=== PATIENT | female | born 1980 | race Caucasian/White ===

== ENCOUNTER 2019-05-14 09:54 | Outpatient (CLI) | payer OTHER ==
--- NOTE | 2019-05-14 15:14 | PET ---
PET SCAN WITH CT ATTENUATION CORRECTION: HISTORY: Right breast cancer. Compression fracture of the thoracic spine. Lumbar spine lesion noted on recen t MRI. COMPARISON: None. TECHNIQUE: PET scan with CT attenuation correction was performed from the base of the brain through the proximal thighs following the intravenous administration of 12.8 mCi of [id number]. CORRELATION: Correlation is made with an MRI report 04/29/2019. FINDINGS: HEAD AND NECK: No abnormal FDG localization. CHEST: No mediastinal, hilar, or hypermetabolic lymphadenopathy. CT used for attenuation correction does no t demonstrate significant masses or consolidation of the lung parenchyma. No FDG avidity. ABDOMEN AND PELVIS: There is physiologic distribution of the radiotracer. No abnormal FDG localization in the abdomen. In the left hemipelvis, at the level of the ovaries/adnexa, there is a solitary hypermetabolic focus with a maximum SUV of 6.9. This focus may be associated with the left ovary. OSSEOUS STRUCTURES: There is diffuse, multifocal osseous hypermetabolic activity involving multiple ribs, the sternum, al l of the thoracic and lumbar vertebrae, as well as the sacrum and multiple cervical vertebrae as well as the sacrum and multiple cervical vertebrae. There is evidence for multifocal osseous metastases. Advertising Representative hypermetabolic focus at T12 has a maximum SUV of 12.3. Additional hypermetabolic ac tivity at T9 has a maximum SUV of 12.3. CT used for attenuation correction demonstrates a compressio n fracture at T11 with mild loss of vertebral body height. Given that there is associated FDG avidit y, pathologic fracture is favored. IMPRESSION: 1. Multifocal osseous metastases with a pathologic fracture at T11. 2. Fluorodeoxyglucose avidity in the left aspect of the pelvis, associated with the adnexa/ovary. N eoplastic process cannot be excluded. Further evaluation with pelvic MRI is recommended. POS: HERMILA
== END 2019-05-14 09:55 | disposition home or self-care (01) ==
LOC: PET 09:54
PROVIDERS: ATTEND Family Medicine
DX: C50.911 Malignant neoplasm of unspecified site of right female breast (principal); M89.9 Disorder of bone, unspecified; C79.51 Secondary malignant neoplasm of bone; M84.58XA Pathological fracture in neoplastic disease, other specified site, initial encounter for fracture
CPT/HCPCS: 78815; A9552

== ENCOUNTER 2019-06-05 08:30 | Outpatient (CLI) | payer OTHER, SELFPAY ==
--- NOTE | 2019-06-05 09:38 | CT ---
HEAD CT WITH AND WITHOUT CONTRAST: HISTORY: Breast cancer. Bone metastases. FINDINGS: NONCONTRAST HEAD CT: No parenchymal hemorrhage. No extra-axial hematoma. No midline shift. Basilar cisterns are patent. Brain volume is age-appropriate. Cortical small-white matter differentiation is preserved No hydrocephalus. There is paranasal sinus mucosal thickening. Adequate aeration and of the mastoid air cells. Calvarium is intact. There is no CT evidence of osseous metastases with regards to the calvarium. POSTCONTRAST HEAD CT: No pathologic enhancement of the brain parenchyma. IMPRESSION: 1. No CT evidence of osseous metastases. 2. No pathologic enhancement of the brain parenchyma. Transcribed Date/Time: 06/05/2019 9:57 AM
[2019-06-05] MEDS ORDERED: ISOVUE-370 76%-LOCM 1 ML ONE (12:00)
== END 2019-06-05 08:31 | disposition home or self-care (01) ==
LOC: BICCT 08:30
PROVIDERS: ATTEND Internal Medicine Hematology & Oncology
DX: C50.211 Malignant neoplasm of upper-inner quadrant of right female breast (principal); C79.51 Secondary malignant neoplasm of bone
CPT/HCPCS: 70470; Q9966

== ENCOUNTER 2019-12-10 11:15 | Outpatient (CLI) | payer OTHER ==
--- NOTE | 2019-12-10 15:42 | PET ---
Radionucleotide PET scan with CT attenuation correction and SPECT imaging HISTORY: Malignant neoplasm of upper inner quadrant right breast. Osseous metastases. Restaging. COMPARISON: 05/14/2019. FINDINGS: Physiologic uptake of radiotracer throughout the enteric system and along each urinary trac t. Overall, there has been extreme decrease in hypermetabolic activity associated with widespread mixed osseous metastatic lesions. The areas of greatest residual hypermetabolic activity are at the T3 vertebral body max SUV 5.8 (previously 13.6), the left iliac bone max SUV 6.6 (16.4), and the proxima l left femur 7.4 (9.9). A focus of increased uptake involving the central portion of the left humerus shows max SUV 6.2 where no abnormal uptake was present on the previous scan. Max SUV associated with the T12 lesion is now 6.8 (previously 14.8). Sagittal CT images, however, alfredo w compression of the anterior aspect of the T12 vertebral body involving primarily the superior endplate, with loss of height by approximately 60% anteriorly. There is retropulsion of the superior endplate, narrowing the AP diameter of the central canal to 0.9 cm. Mild reactive uptake around the left breast implant. Right breast implant also in place. There is com plete mucosal opacification of the left maxillary sinus. IMPRESSION : Remarkable response to therapy, with markedly decreased hypermetabolic activity associated with wides pread osseous metastases. Interval vertebral compression of the T12 superior endplate, with retropulsion and compromise of the central spinal canal. Please consider neurosurgical evaluation. Left maxillary sinusitis.
== END 2019-12-10 11:16 | disposition home or self-care (01) ==
LOC: PET 11:15
PROVIDERS: ATTEND Internal Medicine Hematology & Oncology
DX: C50.211 Malignant neoplasm of upper-inner quadrant of right female breast (principal); C79.51 Secondary malignant neoplasm of bone; R94.8 Abnormal results of function studies of other organs and systems; J32.0 Chronic maxillary sinusitis; G95.29 Other cord compression
CPT/HCPCS: 78815; A9552

== ENCOUNTER 2019-12-14 07:40 | Outpatient (CLI) | payer OTHER ==
[2019-12-14] MEDS ORDERED: Magnevist 469MG/ML 20 ML VIAL ONE (09:28)
--- NOTE | 2019-12-14 09:53 | MRI ---
M RI THORACIC SPINE WITH AND WITHOUT CONTRAST HISTORY: Metastatic breast cancer. Interval compression fracture at T12 superior endplate on PET imaging. Kacy re back pain, mostly right-sided. COMPARISON: None. CORRELATION: PET imaging 12/10/2019. FINDINGS: Visualized mediastinum, lung parenchyma and solid organs have appropriate signal intensity. There is diffuse T1 marrow signal hypointensity involving multiple thoracic and lumbar vertebrae. STI R images demonstrate no significant hyperintensity throughout the thoracic and upper lumbar vertebrae. There is moderate loss of vertebral body height at T9, T11 and T12. There is marked kyphos is secondary to moderate compression fractures at T11 and T12. Postcontrast images demonstrate heterogeneous enhancement. The thoracic cord has a normal size and signal intensity. No intramedullary mass. Conus medullaris te rminates beyond the T12 vertebral body level. There is moderate central canal stenosis at T12, due to retropulsion. The remaining thoracic central spinal canal is patent. Thoracic neural foramina are patent. IMPRESSION: 1. Multifocal osseous metastases. There is heterogeneous signal intensity throughout the thoracic nitza tebrae on the postcontrast images. Findings may represent posttreatment change. Residual metastases cannot be excluded. Moderate compression fracture at T11 and T12 with associated retropulsion and kyp hosis. Absence of STIR hyperintensity to suggest remote compression fracture. 2. Moderate central canal stenosis at T12 secondary to retropulsion. Transcribed Date/Time: 12/14/2019 10:31 AM
--- NOTE | 2019-12-14 10:12 | MRI ---
MRI LUMBAR SPINE WITH AND WITHOUT CONTRAST: HISTORY: Metastatic breast cancer. T12 compression fracture. COMPARISON: None. CORRELATION: Pet imaging 12/10/2019. FINDINGS: Diffuse T1 marrow signal intensity in the visualized distal thoracic spine, lumbar vertebrae and sacr um. Postcontrast images demonstrate heterogeneous enhancement suggesting post treatment change. There is no significant STIR hyperintensity to suggest acute edema or fracture. Lumbar spine vertebra l body heights are maintained. Appropriate signal intensity visualized of the paraspinal muscles and solid organs. Conus medullaris terminates at the mid to lower aspect of L1. T12 vertebral body: Moderate canal stenosis secondary to retropulsion. T12-L1 mild loss of disc space height. No significant central canal stenosis. Mild bilateral neural f oraminal narrowing. L1-L2: Adequate disc hydration. No significant central canal stenosis or significant neural foraminal narrowing. L2-L3: Adequate disc hydration. No significant central canal stenosis or significant neural foraminal narrowing. L3-L4: Adequate disc hydration. No significant central canal stenosis or significant neural foraminal narrowing. L4-L5: Adequate disc hydration. Minimal right subareolar disc herniation. Minimal ligamentum flavum t hickening and facet hypertrophy. No significant central canal stenosis. Mild bilateral neural foraminal narrowing. L5-S1: Adequate disc hydration. No significant central canal stenosis. Mild bilateral neural foramina l narrowing. IMPRESSION: 1. Heterogeneous marrow signal intensity without significant STIR hyperintensity. No evidence of an a cute fracture. Heterogeneous postcontrast enhancement suggest components of treated osseous metastases. Residual metastases cannot be excluded. 2. No acute pathologic fracture. T11 and T12 compression fractures are presumed be remote. 3. Moderate central canal stenosis at T12 secondary to retropulsion. Transcribed Date/Time: 12/14/2019 10:36 AM
== END 2019-12-14 07:41 | disposition home or self-care (01) ==
LOC: MRI 07:40
PROVIDERS: ATTEND Internal Medicine Hematology & Oncology
DX: C50.211 Malignant neoplasm of upper-inner quadrant of right female breast (principal); C79.51 Secondary malignant neoplasm of bone; R93.7 Abnormal findings on diagnostic imaging of other parts of musculoskeletal system; G95.20 Unspecified cord compression; M48.04 Spinal stenosis, thoracic region; M40.204 Unspecified kyphosis, thoracic region; M48.54XA Collapsed vertebra, not elsewhere classified, thoracic region, initial encounter for fracture
CPT/HCPCS: 72157; 72158; A9579

== ENCOUNTER 2021-08-17 09:54 | Outpatient (CLI) | payer SELFPAY | END 2021-08-17 09:55 | disposition home or self-care (01) | LOC: PET 09:54 | PROVIDERS: ATTEND Internal Medicine Hematology & Oncology | DX: C50.211 Malignant neoplasm of upper-inner quadrant of right female breast (principal); C79.51 Secondary malignant neoplasm of bone | CPT/HCPCS: 78815; A9552 ==

== ENCOUNTER 2022-07-17 08:00 | Outpatient (CLI) | payer OTHER, SELFPAY | END 2022-07-17 08:01 | disposition home or self-care (01) | LOC: PET 08:00 | PROVIDERS: ATTEND Internal Medicine Hematology & Oncology | DX: Z12.31 Encounter for screening mammogram for malignant neoplasm of breast (principal); C50.211 Malignant neoplasm of upper-inner quadrant of right female breast; C79.51 Secondary malignant neoplasm of bone; R91.1 Solitary pulmonary nodule | CPT/HCPCS: 78815; A9552 ==

== ENCOUNTER 2023-01-10 13:24 | Inpatient (IN) | payer SELFPAY ==
[2023-01-10 14:13] LABS: Hemoglobin 8.5 g/dL (12.0-16.0); Mean Corpuscular HGB CONC 35.3 g/dL (32.0-36.0); Mean Corpuscular Hemoglobin 29.1 pg (27.0-31.0); Mean Corpuscular Volume 82.5 fl (78.0-98.0); Mean Platelet Volume 9.5 fL (7.4-10.4); Platelet Count 130 10x3/uL (130-400); Red Blood Cell (RBC) Count 2.92 mill/uL (4.20-5.40)
[2023-01-10 14:14] LABS: Delete Auto Diff?? YES; Manual Diff?? YES
[2023-01-10 14:34] LABS: ALT (SGPT) 22 U/L (8-55); AST (SGOT) 42 U/L (5-34); Albumin 3.8 g/dL (3.5-5.0); Alkaline Phosphatase 191 U/L (40-110); Anion Gap 13 mmol/L (10-20); BUN (Urea Nitrogen) 31 mg/dL (7.0-18.7); Bilirubin, Total 0.4 mg/dL (0.2-1.2); Calc. Creatinine Clearance 0 mL/min (70-130); Carbon Dioxide 27 mmol/L (22-29); Chloride 101 mmol/L (98-107); Estimated GFR 25; Glucose 86 mg/dL (70-105); Potassium 4.1 mmol/L (3.5-5.1); Protein, Total 6.8 g/dL (6.0-8.3); Sodium 137 mmol/L (136-145)
[2023-01-10 15:00] LABS: Band 5 % (5-11); CellaVision Operator ID LAB.MJL; Eosinophils 11 % (0-10); Lymphocytes 25 % (21-51); Metamyelocyte 4 % (0-0); Monocytes 14 % (0-10); Neutrophil 41 % (42-75); Ovalocytes SLIGHT = 2-5 cells HPF (0-1); Platelet Adequacy Comment Platelets Normal; Polychromasia SLIGHT = 2-3 cells HPF (0-2); Reactive Lymphocytes 1 % (0-10); Tear Drops SLIGHT = 2-5 cells HPF (0-1); Total Cell Count 101
[2023-01-10 15:04] LABS: Calcium 16.6 mg/dL (7.8-10.44)
[2023-01-10 15:20] LABS: Bacteria/HPF None Seen HPF (None Seen); Bilirubin Negative (Negative); Blood, Urine Negative (Negative); CAUTI Indications for Culture Pelvic or flank pain; Clarity Clear (Clear); Glucose, Urine (Dipstick) Normal (Negative); Ketone, Urine Negative (Negative); Leukocyte Negative Leu/uL (Negative); Nitrite Negative (Negative); Protein, Urine (Dipstick) 10 mg/dL (Neg-Trace); RBC/HPF 0-3 HPF (0-3); Specific Gravity, Urine 1.013 (1.002-1.036); Squamous Epithelial None Seen HPF (0-3); Urobilinogen Normal mg/dL (Less than 2); WBC/HPF 0-3 HPF (0-3); pH, Urine 5.5 (5.0-9.0)
[2023-01-10 15:22] LABS: Urine Culture Reflex No No
[2023-01-10] MEDS ORDERED: Morphine 4 MG/ML VIAL ONE (16:02)
[2023-01-10] MEDS ORDERED: Prochlorperazine Edisylate 10 MG in Sodium Chloride 0.9% 50 ML IVPB SCH (16:15)
[2023-01-10] MEDS ORDERED: Ondansetron PF 4 MG/2 ML Vial IVP PRN (17:39)
[2023-01-10] MEDS ORDERED: Morphine 2 MG/ML VIAL SLOW IVP PRN (17:39)
[2023-01-10] MEDS ORDERED: Sodium Chloride 0.9% 1,000 ML IV SCH (18:00)
[2023-01-10] MEDS: Sodium Chloride 0.9% 1,000 ML IV SCH (18:42)
[2023-01-10 19:01] LABS: Magnesium 1.2 mg/dL (1.6-2.6); Phosphorus 4.2 mg/dL (2.3-4.7)
[2023-01-10 19:18] LABS: Free T4 (Free Thyroxine) 0.96 ng/dL (0.70-1.48); Thyroid Stimulating Hormone 4.3823 uIU/mL (0.35-4.94)
[2023-01-10 19:26] VITALS: BMI 17.2
[2023-01-10] MEDS: Pantoprazole 40 MG VIAL IVP SCH (20:47)
[2023-01-10] MEDS: Cefepime 2 GM in Sodium Chloride 0.9% 100 ML IVPB SCH (20:47)
[2023-01-10] MEDS: Calcitonin,Salmon,Synthetic 400 UNITS/2 ML SC SCH (20:47)
[2023-01-10] MEDS ORDERED: Promethazine HCl 12.5 MG in Sodium Chloride 0.9% 50 ML IVPB PRN (21:47)
[2023-01-10] MEDS ORDERED: Promethazine HCl 12.5 MG in Sodium Chloride 0.9% 50 ML IVPB SCH (22:00)
[2023-01-10 22:32] LABS: #Eosinphils 0.5 thou/uL (0.0-0.7); #Monocytes 0.6 thou/uL (0.11-0.59); #Neutrophils 2.1 thou/uL (1.40-6.50); %Basophils 0.7 % (0.0-1.0); %Eosinophils 10.8 % (0.0-10.0); %Lymphocytes 23.3 % (21.0-51.0); %Monocytes 13.3 % (0.0-10.0); %Neutrophils 46.3 % (42.0-75.0); Hemoglobin 7.8 g/dL (12.0-16.0); Mean Corpuscular HGB CONC 34.7 g/dL (32.0-36.0); Mean Corpuscular Hemoglobin 29.1 pg (27.0-31.0); Mean Platelet Volume 9.2 fL (7.4-10.4); RBC Distribution Width 13.2 % (11.5-14.5); Red Blood Cell (RBC) Count 2.68 mill/uL (4.20-5.40); White Blood Cell (WBC) Count 4.4 10x3/uL (4.8-10.8)
[2023-01-10 22:49] LABS: Platelet Count 106 10x3/uL (130-400)
[2023-01-10 22:50] LABS: Manual Diff?? YES
[2023-01-10 22:51] LABS: Anion Gap 13 mmol/L (10-20); BUN (Urea Nitrogen) 30 mg/dL (7.0-18.7); Calc. Creatinine Clearance 25 mL/min (70-130); Carbon Dioxide 24 mmol/L (22-29); Chloride 107 mmol/L (98-107); Estimated GFR 27; Glucose 92 mg/dL (70-105); Potassium 3.7 mmol/L (3.5-5.1); Sodium 140 mmol/L (136-145)
[2023-01-10 22:57] LABS: Calcium 14.4 mg/dL (7.8-10.44)
[2023-01-10 23:34] LABS: Band 10 % (5-11); Eosinophils 16 % (0-10); Large Platelets 1.9 % (0-5); Lymphocytes 20 % (21-51); Metamyelocyte 1 % (0-0); Monocytes 3 % (0-10); Myelocyte 1 % (0-0); Neutrophil 49 % (42-75); Platelet Adequacy Comment Platelets Decreased; Total Cell Count 103
[2023-01-11] MEDS: Sodium Chloride 0.9% 1,000 ML IV SCH ×4 (01:55→21:20)
[2023-01-11] MEDS: Calcitonin,Salmon,Synthetic 400 UNITS/2 ML SC SCH ×2 (05:45→17:30)
[2023-01-11 06:48] LABS: #Eosinphils 0.5 thou/uL (0.0-0.7); #Monocytes 0.7 thou/uL (0.11-0.59); #Neutrophils 2.1 thou/uL (1.40-6.50); %Basophils 0.8 % (0.0-1.0); %Eosinophils 10.6 % (0.0-10.0); %Lymphocytes 24.5 % (21.0-51.0); %Monocytes 15.1 % (0.0-10.0); %Neutrophils 43.3 % (42.0-75.0); Hemoglobin 7.5 g/dL (12.0-16.0); Mean Corpuscular HGB CONC 35.2 g/dL (32.0-36.0); Mean Corpuscular Hemoglobin 29.8 pg (27.0-31.0); Mean Corpuscular Volume 84.5 fl (78.0-98.0); Mean Platelet Volume 9.4 fL (7.4-10.4); RBC Distribution Width 13.2 % (11.5-14.5); Red Blood Cell (RBC) Count 2.52 mill/uL (4.20-5.40); White Blood Cell (WBC) Count 4.9 10x3/uL (4.8-10.8)
[2023-01-11 06:51] LABS: Platelet Count 104 10x3/uL (130-400)
[2023-01-11 07:28] LABS: ALT (SGPT) 18 U/L (8-55); AST (SGOT) 36 U/L (5-34); Albumin 3.1 g/dL (3.5-5.0); Alkaline Phosphatase 153 U/L (40-110); Anion Gap 12 mmol/L (10-20); BUN (Urea Nitrogen) 27 mg/dL (7.0-18.7); Bilirubin, Total 0.5 mg/dL (0.2-1.2); Calc. Creatinine Clearance 28 mL/min (70-130); Carbon Dioxide 22 mmol/L (22-29); Chloride 107 mmol/L (98-107); Estimated GFR 29; Globulin 2.7 g/dL (2.4-3.5); Glucose 82 mg/dL (70-105); Iron 77 ug/dL (50-170); Potassium 3.3 mmol/L (3.5-5.1); Protein, Total 5.8 g/dL (6.0-8.3); Sodium 138 mmol/L (136-145)
[2023-01-11] MEDS: Pantoprazole 40 MG VIAL IVP SCH ×2 (08:13→21:20)
[2023-01-11] MEDS: Cefepime 2 GM in Sodium Chloride 0.9% 100 ML IVPB SCH (08:14)
[2023-01-11] MEDS ORDERED: Electrolyte Replacement Protocol 1 EACH FS SCH (11:19)
[2023-01-11] MEDS ORDERED: Potassium Chloride 20 MEQ TAB PO SCH (11:30)
[2023-01-11] MEDS: Potassium Chloride 20 MEQ in Premix Bag 1 BAG IVPB SCH ×2 (13:50→17:29)
[2023-01-11] MEDS ORDERED: Magnesium Sulfate In Water 4 GM in Premix Bag 1 BAG IVPB SCH (16:00)
[2023-01-11] MEDS ORDERED: Magnesium Sulfate 4 GM in Sodium Chloride 0.9% 250 ML 250 ML IVPB SCH (16:00)
[2023-01-11] MEDS ORDERED: Ampicillin/Sulbactam 3 GM in Sodium Chloride 0.9% 100 ML IVPB SCH (17:00)
[2023-01-11 17:27] LABS: Hemoglobin 7.4 g/dL (12.0-16.0); Mean Corpuscular HGB CONC 35.2 g/dL (32.0-36.0); Mean Corpuscular Hemoglobin 29.7 pg (27.0-31.0); Mean Corpuscular Volume 84.3 fl (78.0-98.0); Mean Platelet Volume 9.6 fL (7.4-10.4); Red Blood Cell (RBC) Count 2.49 mill/uL (4.20-5.40); White Blood Cell (WBC) Count 5.8 10x3/uL (4.8-10.8)
[2023-01-11 17:30] LABS: Delete Auto Diff?? YES; Manual Diff?? YES; Platelet Count 118 10x3/uL (130-400)
[2023-01-11 17:58] LABS: ALT (SGPT) 18 U/L (8-55); AST (SGOT) 38 U/L (5-34); Albumin 3.3 g/dL (3.5-5.0); Alkaline Phosphatase 157 U/L (40-110); Anion Gap 11 mmol/L (10-20); BUN (Urea Nitrogen) 25 mg/dL (7.0-18.7); Bilirubin, Total 0.4 mg/dL (0.2-1.2); Calc. Creatinine Clearance 30 mL/min (70-130); Calcium 12.1 mg/dL (7.8-10.44); Carbon Dioxide 22 mmol/L (22-29); Chloride 105 mmol/L (98-107); Estimated GFR 33; Globulin 2.6 g/dL (2.4-3.5); Glucose 122 mg/dL (70-105); Potassium 3.3 mmol/L (3.5-5.1); Protein, Total 5.9 g/dL (6.0-8.3); Sodium 135 mmol/L (136-145)
[2023-01-11] MEDS ORDERED: HYDROcodone/Acetaminophen 5/325 mg Tablet PO PRN (17:58)
[2023-01-11] MEDS ORDERED: Ketorolac Tromethamine 30 MG/ML VIAL IVP SCH ×2 (18:00)
[2023-01-11 18:15] LABS: Band 13 % (5-11); CellaVision Operator ID LAB.MJL; Eosinophils 10 % (0-10); Lymphocytes 23 % (21-51); Metamyelocyte 5 % (0-0); Monocytes 5 % (0-10); Myelocyte 3 % (0-0); Neutrophil 41 % (42-75); Platelet Adequacy Comment Platelets Decreased; Polychromasia SLIGHT = 2-3 cells HPF (0-2); Total Cell Count 101
[2023-01-11] MEDS: Morphine 2 MG/ML VIAL SLOW IVP PRN (20:08)
[2023-01-11] MEDS ORDERED: Cefepime 2 GM in Sodium Chloride 0.9% 100 ML IVPB SCH (21:00)
[2023-01-11] MEDS: Ampicillin/Sulbactam 3 GM in Sodium Chloride 0.9% 100 ML IVPB SCH (21:19)
[2023-01-12 00:35] LABS: #Eosinphils 0.7 thou/uL (0.0-0.7); #Monocytes 0.8 thou/uL (0.11-0.59); #Neutrophils 2.3 thou/uL (1.40-6.50); %Basophils 0.8 % (0.0-1.0); %Lymphocytes 24.8 % (21.0-51.0); %Monocytes 14.2 % (0.0-10.0); %Neutrophils 42.5 % (42.0-75.0); Mean Corpuscular HGB CONC 35.7 g/dL (32.0-36.0); Mean Corpuscular Hemoglobin 29.3 pg (27.0-31.0); Mean Platelet Volume 9.2 fL (7.4-10.4); RBC Distribution Width 12.7 % (11.5-14.5); Red Blood Cell (RBC) Count 2.39 mill/uL (4.20-5.40); White Blood Cell (WBC) Count 5.3 10x3/uL (4.8-10.8)
[2023-01-12 00:37] LABS: Platelet Count 109 10x3/uL (130-400)
[2023-01-12 00:57] LABS: ALT (SGPT) 19 U/L (8-55); AST (SGOT) 37 U/L (5-34); Albumin 3.2 g/dL (3.5-5.0); Alkaline Phosphatase 155 U/L (40-110); Anion Gap 10 mmol/L (10-20); BUN (Urea Nitrogen) 23 mg/dL (7.0-18.7); Bilirubin, Total 0.4 mg/dL (0.2-1.2); Calc. Creatinine Clearance 35 mL/min (70-130); Calcium 11.6 mg/dL (7.8-10.44); Carbon Dioxide 24 mmol/L (22-29); Chloride 108 mmol/L (98-107); Estimated GFR 39; Globulin 2.5 g/dL (2.4-3.5); Glucose 97 mg/dL (70-105); Potassium 3.4 mmol/L (3.5-5.1); Protein, Total 5.7 g/dL (6.0-8.3); Sodium 139 mmol/L (136-145)
[2023-01-12] MEDS: Sodium Chloride 0.9% 1,000 ML IV SCH ×4 (01:49→23:46)
[2023-01-12] MEDS: Calcitonin,Salmon,Synthetic 400 UNITS/2 ML SC SCH (05:25)
[2023-01-12] MEDS: Morphine 2 MG/ML VIAL SLOW IVP PRN ×3 (06:37→23:47)
[2023-01-12 07:22] LABS: #Eosinphils 0.6 thou/uL (0.0-0.7); #Monocytes 0.8 thou/uL (0.11-0.59); #Neutrophils 2.3 thou/uL (1.40-6.50); %Basophils 0.8 % (0.0-1.0); %Lymphocytes 24.4 % (21.0-51.0); %Monocytes 14.6 % (0.0-10.0); %Neutrophils 44.2 % (42.0-75.0); Hemoglobin 7.1 g/dL (12.0-16.0); Mean Corpuscular HGB CONC 35.1 g/dL (32.0-36.0); Mean Corpuscular Hemoglobin 29.3 pg (27.0-31.0); Mean Corpuscular Volume 83.5 fl (78.0-98.0); Mean Platelet Volume 9.1 fL (7.4-10.4); RBC Distribution Width 12.9 % (11.5-14.5); Red Blood Cell (RBC) Count 2.42 mill/uL (4.20-5.40); White Blood Cell (WBC) Count 5.2 10x3/uL (4.8-10.8)
[2023-01-12 07:58] LABS: ALT (SGPT) 20 U/L (8-55); AST (SGOT) 38 U/L (5-34); Albumin 3.3 g/dL (3.5-5.0); Alkaline Phosphatase 162 U/L (40-110); Anion Gap 14 mmol/L (10-20); BUN (Urea Nitrogen) 20 mg/dL (7.0-18.7); Bilirubin, Total 0.5 mg/dL (0.2-1.2); Calc. Creatinine Clearance 38 mL/min (70-130); Calcium 11.7 mg/dL (7.8-10.44); Carbon Dioxide 20 mmol/L (22-29); Chloride 107 mmol/L (98-107); Estimated GFR 43; Globulin 2.7 g/dL (2.4-3.5); Glucose 93 mg/dL (70-105); Magnesium 1.6 mg/dL (1.6-2.6); Phosphorus 3.1 mg/dL (2.3-4.7); Potassium 3.4 mmol/L (3.5-5.1); Sodium 138 mmol/L (136-145)
[2023-01-12] MEDS ORDERED: Potassium Chloride 20 MEQ TAB PO SCH (08:00)
[2023-01-12 08:01] LABS: Platelet Count 111 10x3/uL (130-400)
[2023-01-12] MEDS: Pantoprazole 40 MG VIAL IVP SCH ×2 (08:12→20:37)
[2023-01-12] MEDS: Ampicillin/Sulbactam 3 GM in Sodium Chloride 0.9% 100 ML IVPB SCH (08:13)
[2023-01-12] MEDS ORDERED: Magnesium 2 GM/50 ML(in water) 2 GM in Premix Bag 1 BAG IVPB SCH (08:30)
[2023-01-12] MEDS: Potassium Chloride 20 MEQ in Premix Bag 1 BAG IVPB SCH ×2 (08:47→16:47)
[2023-01-12] MEDS ORDERED: Bisacodyl 10 MG SUPP PR SCH (09:51)
[2023-01-12] MEDS ORDERED: Milk Of Magnesia 30 ML UDCUP PO SCH (09:52)
[2023-01-12] MEDS: Prochlorperazine Edisylate 10 MG in Sodium Chloride 0.9% 50 ML IVPB PRN ×2 (10:52→23:47)
[2023-01-12] MEDS ORDERED: fentaNYL 50 mcg/hour Patch TD SCH (12:30)
[2023-01-12] MEDS ORDERED: Ampicillin/Sulbactam 3 GM in Sodium Chloride 0.9% 100 ML IVPB SCH (18:00)
[2023-01-13] MEDS: Ampicillin/Sulbactam 3 GM in Sodium Chloride 0.9% 100 ML IVPB SCH ×4 (02:14→20:51)
[2023-01-13] MEDS: Sodium Chloride 0.9% 1,000 ML IV SCH ×3 (07:30→17:24)
[2023-01-13 08:30] LABS: #Basophils 0.1 thou/uL (0.0-0.2); #Eosinphils 0.7 thou/uL (0.0-0.7); #Monocytes 0.9 thou/uL (0.11-0.59); #Neutrophils 2.9 thou/uL (1.40-6.50); %Basophils 0.8 % (0.0-1.0); %Eosinophils 10.9 % (0.0-10.0); %Monocytes 13.7 % (0.0-10.0); %Neutrophils 43.9 % (42.0-75.0); Hemoglobin 9.5 g/dL (12.0-16.0); Mean Corpuscular HGB CONC 35.8 g/dL (32.0-36.0); Mean Corpuscular Hemoglobin 29.5 pg (27.0-31.0); Mean Corpuscular Volume 82.3 fl (78.0-98.0); Mean Platelet Volume 9.4 fL (7.4-10.4); Platelet Count 131 10x3/uL (130-400); RBC Distribution Width 13.1 % (11.5-14.5); Red Blood Cell (RBC) Count 3.22 mill/uL (4.20-5.40); White Blood Cell (WBC) Count 6.6 10x3/uL (4.8-10.8)
[2023-01-13 08:52] LABS: ALT (SGPT) 18 U/L (8-55); AST (SGOT) 39 U/L (5-34); Albumin 3.5 g/dL (3.5-5.0); Alkaline Phosphatase 187 U/L (40-110); Anion Gap 17 mmol/L (10-20); BUN (Urea Nitrogen) 17 mg/dL (7.0-18.7); Bilirubin, Total 0.7 mg/dL (0.2-1.2); Calc. Creatinine Clearance 48 mL/min (70-130); Carbon Dioxide 19 mmol/L (22-29); Chloride 104 mmol/L (98-107); Estimated GFR 56; Globulin 2.9 g/dL (2.4-3.5); Glucose 81 mg/dL (70-105); Magnesium 1.3 mg/dL (1.6-2.6); Potassium 3.3 mmol/L (3.5-5.1); Protein, Total 6.4 g/dL (6.0-8.3); Sodium 137 mmol/L (136-145)
[2023-01-13] MEDS: Pantoprazole 40 MG VIAL IVP SCH ×2 (09:04→20:52)
[2023-01-13] MEDS ORDERED: Potassium Chloride 20 MEQ TAB PO SCH (09:15)
[2023-01-13] MEDS ORDERED: Magnesium Sulfate In Water 4 GM in Premix Bag 1 BAG IVPB SCH (10:00)
[2023-01-13] MEDS: Potassium Chloride 20 MEQ in Premix Bag 1 BAG IVPB SCH ×2 (11:16→16:29)
[2023-01-13] MEDS ORDERED: Potassium Chloride 20 MEQ in Lactated Ringer's 1,000 ML IV SCH (12:00)
[2023-01-13] MEDS: Milk Of Magnesia 30 ML UDCUP PO PRN (13:04)
[2023-01-13] MEDS ORDERED: Zoledronic Acid 4 MG in Sodium Chloride 0.9% 100 ML IVPB SCH (13:15)
[2023-01-13] MEDS ORDERED: Acetaminophen 325 MG TAB PO PRN (17:38)
[2023-01-13] MEDS ORDERED: Lorazepam 1 MG TAB PO PRN (21:27)
[2023-01-13] MEDS: Acetaminophen 325 MG TAB PO PRN (21:34)
[2023-01-14] MEDS: Acetaminophen 325 MG TAB PO PRN ×5 (01:06→21:24)
[2023-01-14] MEDS: Ampicillin/Sulbactam 3 GM in Sodium Chloride 0.9% 100 ML IVPB SCH ×4 (01:06→20:51)
[2023-01-14] MEDS: Sodium Chloride 0.9% 1,000 ML IV SCH ×5 (01:06→20:50)
[2023-01-14 07:01] LABS: Hemoglobin 9.7 g/dL (12.0-16.0); Mean Corpuscular HGB CONC 35.9 g/dL (32.0-36.0); Mean Corpuscular Hemoglobin 29.5 pg (27.0-31.0); Mean Corpuscular Volume 82.1 fl (78.0-98.0); Mean Platelet Volume 8.8 fL (7.4-10.4); Platelet Count 120 10x3/uL (130-400); RBC Distribution Width 13.2 % (11.5-14.5); Red Blood Cell (RBC) Count 3.29 mill/uL (4.20-5.40); White Blood Cell (WBC) Count 4.7 10x3/uL (4.8-10.8)
[2023-01-14 07:14] LABS: Delete Auto Diff?? YES; Manual Diff?? YES
[2023-01-14 07:26] LABS: ALT (SGPT) 27 U/L (8-55); AST (SGOT) 50 U/L (5-34); Albumin 3.6 g/dL (3.5-5.0); Alkaline Phosphatase 209 U/L (40-110); Anion Gap 10 mmol/L (10-20); BUN (Urea Nitrogen) 18 mg/dL (7.0-18.7); Bilirubin, Total 0.6 mg/dL (0.2-1.2); Calc. Creatinine Clearance 41 mL/min (70-130); Carbon Dioxide 26 mmol/L (22-29); Chloride 104 mmol/L (98-107); Estimated GFR 47; Globulin 2.9 g/dL (2.4-3.5); Glucose 112 mg/dL (70-105); Magnesium 1.5 mg/dL (1.6-2.6); Potassium 3.1 mmol/L (3.5-5.1); Protein, Total 6.5 g/dL (6.0-8.3); Sodium 137 mmol/L (136-145)
[2023-01-14] MEDS ORDERED: Potassium Chloride 20 MEQ TAB PO SCH (08:00)
[2023-01-14] MEDS ORDERED: Magnesium 2 GM/50 ML(in water) 2 GM in Premix Bag 1 BAG IVPB SCH (08:00)
[2023-01-14 08:01] LABS: Calcium 13.2 mg/dL (7.8-10.44)
[2023-01-14 08:25] LABS: Phosphorus 2.2 mg/dL (2.3-4.7)
[2023-01-14 08:34] LABS: Band 22 % (5-11); CellaVision Operator ID LAB.GE; Eosinophils 9 % (0-10); Large Platelets 0.9 % (0-5); Lymphocytes 8 % (21-51); Metamyelocyte 1 % (0-0); Monocytes 4 % (0-10); Neutrophil 53 % (42-75); Platelet Adequacy Comment Platelets Decreased; Polychromasia SLIGHT = 2-3 cells HPF (0-2); Reactive Lymphocytes 1 % (0-10); Total Cell Count 107
[2023-01-14] MEDS ORDERED: Midazolam HCl 2 mg/2 ml Vial ONE (09:21)
[2023-01-14] MEDS ORDERED: fentaNYL 50 mcg/mL 1 mL Vial ONE (09:21)
[2023-01-14] MEDS ORDERED: Promethazine HCl 25 MG/ML VIAL ONE (09:23)
[2023-01-14] MEDS ORDERED: PROPOFOL 200 MG/20 ML VIAL ONE (09:30)
[2023-01-14] MEDS ORDERED: Lidocaine 1% PF 5 ML VIAL ONE (09:30)
[2023-01-14] MEDS ORDERED: Promethazine HCl 25 MG/ML VIAL IM PRN (09:58)
[2023-01-14] MEDS ORDERED: Ondansetron HCl/PF 4 MG/2 ML Vial IVP PRN (09:58)
[2023-01-14] MEDS: Pantoprazole 40 MG VIAL IVP SCH ×2 (12:22→20:51)
[2023-01-14] MEDS ORDERED: Potassium Bicarbonate/Cit Ac 20 MEQ TAB PO SCH (15:45)
[2023-01-14 16:02] LABS: SARS-CoV-2 NAA Rapid Test Not Detected (NotDetected)
[2023-01-14 17:53] LABS: Iron 78 ug/dL (50-170); Iron Binding Capacity, Total 171 mcg/dL (265-497)
[2023-01-14 18:16] LABS: Ferritin 916.14 ng/mL (10-291)
[2023-01-14 19:09] LABS: Vitamin B12 Greater than 2000 pg/mL (211-911)
[2023-01-14] MEDS: Morphine 2 MG/ML VIAL SLOW IVP PRN (22:40)
[2023-01-14] MEDS: Milk Of Magnesia 30 ML UDCUP PO PRN (22:40)
[2023-01-15] MEDS: Ampicillin/Sulbactam 3 GM in Sodium Chloride 0.9% 100 ML IVPB SCH ×3 (02:05→14:50)
[2023-01-15] MEDS: Sodium Chloride 0.9% 1,000 ML IV SCH ×2 (05:21→08:33)
[2023-01-15] MEDS ORDERED: Bisacodyl 10 MG SUPP PR PRN (05:23)
[2023-01-15] MEDS: Morphine 2 MG/ML VIAL SLOW IVP PRN ×2 (05:36→16:26)
[2023-01-15 08:02] VITALS: BP 109/71; TEMP 99
[2023-01-15 08:03] LABS: Mean Corpuscular HGB CONC 35.6 g/dL (32.0-36.0); Mean Corpuscular Hemoglobin 29.6 pg (27.0-31.0); Mean Corpuscular Volume 83.3 fl (78.0-98.0); Mean Platelet Volume 8.8 fL (7.4-10.4); Platelet Count 98 10x3/uL (130-400); RBC Distribution Width 13.7 % (11.5-14.5); White Blood Cell (WBC) Count 4.1 10x3/uL (4.8-10.8)
[2023-01-15] MEDS: Pantoprazole 40 MG VIAL IVP SCH (08:29)
[2023-01-15 08:33] LABS: Delete Auto Diff?? YES; Manual Diff?? YES
[2023-01-15] MEDS: Acetaminophen 325 MG TAB PO PRN ×2 (08:38→13:39)
[2023-01-15 08:39] LABS: ALT (SGPT) 53 U/L (8-55); AST (SGOT) 76 U/L (5-34); Albumin 2.9 g/dL (3.5-5.0); Alkaline Phosphatase 186 U/L (40-110); Anion Gap 7 mmol/L (10-20); BUN (Urea Nitrogen) 15 mg/dL (7.0-18.7); Bilirubin, Total 0.3 mg/dL (0.2-1.2); Calc. Creatinine Clearance 36 mL/min (70-130); Calcium 9.7 mg/dL (7.8-10.44); Carbon Dioxide 27 mmol/L (22-29); Chloride 106 mmol/L (98-107); Estimated GFR 41; Globulin 2.4 g/dL (2.4-3.5); Glucose 97 mg/dL (70-105); Potassium 2.9 mmol/L (3.5-5.1); Protein, Total 5.3 g/dL (6.0-8.3); Sodium 137 mmol/L (136-145)
[2023-01-15] MEDS ORDERED: Potassium Chloride 20 MEQ TAB PO SCH ×2 (09:00→09:15)
[2023-01-15 09:03] LABS: Band 25 % (5-11); CellaVision Operator ID LAB.GE; Eosinophils 10 % (0-10); Lymphocytes 13 % (21-51); Monocytes 7 % (0-10); Myelocyte 1 % (0-0); Neutrophil 43 % (42-75); Platelet Adequacy Comment Platelets Decreased; Polychromasia SLIGHT = 2-3 cells HPF (0-2); Reactive Lymphocytes 1 % (0-10); Total Cell Count 102; Vacuoles SLIGHT
[2023-01-15] MEDS: Potassium Bicarbonate/Cit Ac 20 MEQ TAB PER TUBE SCH ×2 (09:43→13:39)
[2023-01-15] MEDS: Potassium Chloride 20 MEQ in Premix Bag 1 BAG IVPB SCH ×2 (09:43→12:24)
[2023-01-15 13:06] LABS: Bacteria/HPF None Seen HPF (None Seen); Bilirubin Negative (Negative); Blood, Urine Negative (Negative); Clarity Clear (Clear); Glucose, Urine (Dipstick) Normal (Negative); Ketone, Urine Negative (Negative); Leukocyte Negative Leu/uL (Negative); Nitrite Negative (Negative); Protein, Urine (Dipstick) Negative (Neg-Trace); RBC/HPF 0-3 HPF (0-3); Specific Gravity, Urine 1.009 (1.002-1.036); Squamous Epithelial None Seen HPF (0-3); Urobilinogen Normal mg/dL (Less than 2); WBC/HPF 0-3 HPF (0-3); pH, Urine 6.5 (5.0-9.0)
[2023-01-15 13:55] LABS: Creatinine, Urine 22.13 mg/dL (47-110)
== END 2023-01-15 17:32 | disposition home or self-care (01) | DRG 378 ==
LOC: ERS 13:24 → ERHOLD 16:48 → T4-A 18:34
PROVIDERS: ADMIT Family Medicine; ATTEND Internal Medicine
PROC: 30233N1 Transfusion of Nonautologous Red Blood Cells into Peripheral Vein, Percutaneous Approach (ICD-10-PCS; 2023-01-12)
PROC: 0DB38ZX Excision of Lower Esophagus, Via Natural or Artificial Opening Endoscopic, Diagnostic (ICD-10-PCS; principal; 2023-01-14)
PROC: 0DB18ZX Excision of Upper Esophagus, Via Natural or Artificial Opening Endoscopic, Diagnostic (ICD-10-PCS; 2023-01-14)
DX: K25.4 Chronic or unspecified gastric ulcer with hemorrhage (principal); C78.7 Secondary malignant neoplasm of liver and intrahepatic bile duct; C79.51 Secondary malignant neoplasm of bone; N17.9 Acute kidney failure, unspecified; D64.9 Anemia, unspecified; E83.52 Hypercalcemia; E86.0 Dehydration; J32.8 Other chronic sinusitis; Z20.822 Contact with and (suspected) exposure to COVID-19; K22.2 Esophageal obstruction; C50.919 Malignant neoplasm of unspecified site of unspecified female breast; E83.42 Hypomagnesemia; E87.6 Hypokalemia; Z85.3 Personal history of malignant neoplasm of breast
CPT/HCPCS: 36415; 36430; 70450; 70553; 74176; 80053; 81001; 82306; 82330; 82570; 82607; 82728; 83540; 83550; 83735; 83970; 84100; 84300; 84439; 84443; 84481; 85025; 86300; 86850; 86900; 86901; 87040; 88305; 96361; 96374; C9113; J0295; J0630; J0692; J0780; J1885; J2250; J2270; J2272; J2405; J2550; J2704; J3010; J3475; J3480; J3489; J3490; J7050; P9016

== ENCOUNTER 2023-03-12 19:16 | Emergency (ER) | payer SELFPAY ==
[2023-03-12 20:25] LABS: Hematocrit 17.8 % (36.0-47.0); Manual Diff?? YES; Mean Corpuscular HGB CONC 33.7 g/dL (32.0-36.0); Mean Platelet Volume 10.5 fL (7.4-10.4); RBC Distribution Width 16.9 % (11.5-14.5); White Blood Cell (WBC) Count 6.5 10x3/uL (4.8-10.8)
[2023-03-12 20:28] LABS: Platelet Count 23 10x3/uL (130-400)
[2023-03-12 20:29] LABS: Delete Auto Diff?? YES
[2023-03-12 20:47] LABS: ALT (SGPT) 20 U/L (8-55); AST (SGOT) 42 U/L (5-34); Alkaline Phosphatase 283 U/L (40-110); Anion Gap 14 mmol/L (10-20); BUN (Urea Nitrogen) 17 mg/dL (7.0-18.7); Bilirubin, Total 0.4 mg/dL (0.2-1.2); Calc. Creatinine Clearance 0 mL/min (70-130); Calcium 7.5 mg/dL (7.8-10.44); Carbon Dioxide 16 mmol/L (22-29); Chloride 110 mmol/L (98-107); Estimated GFR 115; Globulin 3.2 g/dL (2.4-3.5); Glucose 77 mg/dL (70-105); Potassium 3.1 mmol/L (3.5-5.1); Protein, Total 6.2 g/dL (6.0-8.3); Sodium 137 mmol/L (136-145)
[2023-03-12 21:33] LABS: Anisocytosis SLIGHT = 6-15 cells HPF (0-5); Band 4 % (5-11); Blast 3 % (0-0); CellaVision Operator ID LAB.CLH1; Eosinophils 15 % (0-10); Large Platelets 1.7 % (0-5); Lymphocytes 38 % (21-51); Metamyelocyte 3 % (0-0); Monocytes 19 % (0-10); Myelocyte 2 % (0-0); Neutrophil 9 % (42-75); Nucleated RBC (Manual Ct) 15 % (0); Platelet Adequacy Comment Platelets Decreased; Polychromasia MODERATE = 3-4 cells HPF (0-2); Promyelocytes 3 % (0-0); Total Cell Count 117
[2023-03-12] MEDS ORDERED: Potassium Chloride 20 MEQ TAB ONE (21:33)
[2023-03-12] MEDS ORDERED: Morphine 4 MG/ML VIAL ONE (23:01)
[2023-03-12] MEDS ORDERED: Ondansetron PF 4 MG/2 ML Vial ONE (23:01)
== END 2023-03-12 23:17 | disposition home or self-care (01) ==
LOC: ERS 19:16
DX: D64.9 Anemia, unspecified (principal); R53.1 Weakness; E87.6 Hypokalemia; K21.9 Gastro-esophageal reflux disease without esophagitis
CPT/HCPCS: 36430; 86850; 86900; 86901; 96361; 96374; J2270; J2405; P9016

== ENCOUNTER 2023-03-14 18:19 | Emergency (ER) | payer SELFPAY ==
[2023-03-14 22:24] LABS: Hemoglobin 7.5 g/dL (12.0-16.0); Manual Diff?? YES; Mean Corpuscular HGB CONC 32.6 g/dL (32.0-36.0); Mean Corpuscular Hemoglobin 29.4 pg (27.0-31.0); Mean Corpuscular Volume 90.2 fl (78.0-98.0); Mean Platelet Volume 9.3 fL (7.4-10.4); Red Blood Cell (RBC) Count 2.55 mill/uL (4.20-5.40); White Blood Cell (WBC) Count 5.9 10x3/uL (4.8-10.8)
[2023-03-14 22:35] LABS: Delete Auto Diff?? YES; Platelet Count 17 10x3/uL (130-400)
[2023-03-14 22:46] LABS: ALT (SGPT) 24 U/L (8-55); AST (SGOT) 53 U/L (5-34); Albumin 3.7 g/dL (3.5-5.0); Alkaline Phosphatase 365 U/L (40-110); Anion Gap 16 mmol/L (10-20); BUN (Urea Nitrogen) 15 mg/dL (7.0-18.7); Bilirubin, Total 0.7 mg/dL (0.2-1.2); Calc. Creatinine Clearance 0 mL/min (70-130); Calcium 9.7 mg/dL (7.8-10.44); Carbon Dioxide 17 mmol/L (22-29); Chloride 104 mmol/L (98-107); Estimated GFR 112; Globulin 3.6 g/dL (2.4-3.5); Glucose 94 mg/dL (70-105); Potassium 3.9 mmol/L (3.5-5.1); Protein, Total 7.3 g/dL (6.0-8.3); Sodium 133 mmol/L (136-145)
[2023-03-14 23:02] LABS: Band 4 % (5-11); CellaVision Operator ID lab.abc; Eosinophils 17 % (0-10); Lymphocytes 27 % (21-51); Metamyelocyte 4 % (0-0); Monocytes 23 % (0-10); Myelocyte 16 % (0-0); Neutrophil 5 % (42-75); Nucleated RBC (Manual Ct) 35 % (0); Platelet Adequacy Comment Significant decrease; Polychromasia MODERATE = 3-4 cells HPF (0-2); Promyelocytes 1 % (0-0); Reactive Lymphocytes 1 % (0-10); Smudge Cells 57.4 %; Tear Drops SLIGHT = 2-5 cells HPF (0-1); Total Cell Count 101
[2023-03-15] MEDS ORDERED: Ketorolac Tromethamine 30 MG/ML VIAL ONE (01:34)
[2023-03-15] MEDS ORDERED: diphenhydrAMINE 50 MG/ML VIAL ONE (03:02)
[2023-03-15] MEDS ORDERED: Morphine 4 MG/ML VIAL ONE (03:41)
== END 2023-03-15 03:50 | disposition home or self-care (01) ==
LOC: ERS 18:19
DX: D64.9 Anemia, unspecified (principal); D69.6 Thrombocytopenia, unspecified
CPT/HCPCS: 36430; 86850; 86900; 86901; 96374; 96375; J1200; J1885; J2270; P9016; P9035

== ENCOUNTER 2023-04-01 11:42 | Inpatient (IN) | payer SELFPAY ==
[~2023-04-01 11:42] MED LIST: Iopamidol-370 76% 500 ML MDV (1 ML CHARGE) ONE
[2023-04-01 13:49] LABS: Hematocrit 30.6 % (36.0-47.0); Hemoglobin 10.1 g/dL (12.0-16.0); Manual Diff?? YES; Mean Corpuscular Hemoglobin 27.8 pg (27.0-31.0); Mean Corpuscular Volume 84.3 fl (78.0-98.0); Mean Platelet Volume 9.3 fL (7.4-10.4); RBC Distribution Width 16.8 % (11.5-14.5); Red Blood Cell (RBC) Count 3.63 mill/uL (4.20-5.40); White Blood Cell (WBC) Count 5.5 10x3/uL (4.8-10.8)
[2023-04-01 13:50] LABS: Delete Auto Diff?? YES; Platelet Count 22 10x3/uL (130-400)
[2023-04-01 14:06] LABS: ALT (SGPT) 25 U/L (8-55); AST (SGOT) 69 U/L (5-34); Albumin 3.3 g/dL (3.5-5.0); Alkaline Phosphatase 491 U/L (40-110); Anion Gap 18 mmol/L (10-20); BUN (Urea Nitrogen) 19 mg/dL (7.0-18.7); Bilirubin, Total 0.6 mg/dL (0.2-1.2); Calc. Creatinine Clearance 0 mL/min (70-130); Calcium 9.1 mg/dL (7.8-10.44); Carbon Dioxide 19 mmol/L (22-29); Chloride 98 mmol/L (98-107); Estimated GFR 113; Globulin 3.7 g/dL (2.4-3.5); Glucose 105 mg/dL (70-105); Potassium 3.8 mmol/L (3.5-5.1); Sodium 131 mmol/L (136-145)
[2023-04-01 14:25] LABS: Band 4 % (5-11); CellaVision Operator ID LAB.KB; Eosinophils 6 % (0-10); Lymphocytes 26 % (21-51); Metamyelocyte 2 % (0-0); Monocytes 35 % (0-10); Myelocyte 13 % (0-0); Neutrophil 2 % (42-75); Nucleated RBC (Manual Ct) 23 % (0); Platelet Adequacy Comment Significant decrease; Polychromasia SLIGHT = 2-3 cells HPF (0-2); Reactive Lymphocytes 3 % (0-10); Smudge Cells 39.7 %; Total Cell Count 116
[2023-04-01 15:23] LABS: BHCG - Serum Negative (NEGATIVE); Pregs Control Background? CLEAR/WHITE (CLR/WHITE); Pregs Control Bar Appear? YES (CONTROL BAR)
[2023-04-01] MEDS ORDERED: Morphine 2 MG/ML VIAL ONE (17:59)
[2023-04-01] MEDS ORDERED: Ondansetron PF 4 MG/2 ML Vial ONE (17:59)
[2023-04-01] MEDS ORDERED: Ondansetron ODT 4 MG TAB PO PRN (18:04)
[2023-04-01] MEDS ORDERED: Ondansetron PF 4 MG/2 ML Vial IVP PRN (18:04)
[2023-04-01] MEDS ORDERED: Acetaminophen 650 MG/20.3 ML UDCUP PO PRN (18:06)
[2023-04-01] MEDS: HYDROcodone/Acetaminophen 5/325 mg Tablet PO PRN ×2 (20:06→23:23)
[2023-04-01] MEDS: Morphine 2 MG/ML VIAL SLOW IVP PRN ×2 (20:07→23:23)
[2023-04-01] MEDS: Ipratropium/Albuterol 3 ML NEB NEB SCH (20:13)
[2023-04-01 23:10] VITALS: BMI 18.8
[2023-04-02] MEDS: Morphine 2 MG/ML VIAL SLOW IVP PRN ×2 (05:17→09:41)
[2023-04-02 06:09] LABS: Anion Gap 17 mmol/L (10-20); BUN (Urea Nitrogen) 16 mg/dL (7.0-18.7); Calc. Creatinine Clearance 91 mL/min (70-130); Calcium 8.8 mg/dL (7.8-10.44); Carbon Dioxide 20 mmol/L (22-29); Chloride 101 mmol/L (98-107); Estimated GFR 117; Glucose 102 mg/dL (70-105); Potassium 3.5 mmol/L (3.5-5.1); Sodium 134 mmol/L (136-145)
[2023-04-02] MEDS: Ipratropium/Albuterol 3 ML NEB NEB SCH ×4 (07:00→18:53)
[2023-04-02] MEDS ORDERED: Saccharomyces boulardii 250 MG CAP PO SCH (09:00)
[2023-04-02] MEDS ORDERED: Lidocaine 1% (PF) 30 ML VIAL ONE (10:19)
[2023-04-02 10:35] LABS: Fluid, pH - Pleural Fld 7.436 (7.60 - 7.66)
[2023-04-02 11:20] LABS: RBC Count-Automated (BF) 14596 /cu.mm; WBC/Nucleated-Auto (BF) 993 /cu.mm
[2023-04-02] MEDS: Morphine 4 MG/ML VIAL SLOW IVP SCH ×3 (12:09→21:02)
[2023-04-02] MEDS: Senokot S 8.6-50 MG TAB PO PRN (12:24)
[2023-04-02 12:42] LABS: BF Color Red; Body Fluid Source Thoracentesis Fluid; Clarity Hazy (Clear); Tube # EDTA
[2023-04-02 12:49] LABS: BF Segmented Neutrophils 15 %; Cell Count Non Hematic 21 %; Lymphocytes 64 %
[2023-04-02 13:40] LABS: Fluid, Triglycerides 78 mg/dL (Not Available); Pleural Fluid, Amylase Less than 30 U/L (Not Available); Pleural Fluid, Glucose 104 mg/dL; Pleural Fluid, LDH 664 U/L (Not Available)
[2023-04-02] MEDS: Saccharomyces boulardii 250 MG CAP PO SCH (17:05)
[2023-04-02 17:08] LABS: Manual Diff?? YES; Mean Corpuscular HGB CONC 31.1 g/dL (32.0-36.0); Mean Corpuscular Hemoglobin 27.2 pg (27.0-31.0); Mean Corpuscular Volume 87.7 fl (78.0-98.0); Mean Platelet Volume 8.7 fL (7.4-10.4); RBC Distribution Width 16.8 % (11.5-14.5); Red Blood Cell (RBC) Count 2.35 mill/uL (4.20-5.40); White Blood Cell (WBC) Count 6.3 10x3/uL (4.8-10.8)
[2023-04-02 17:10] LABS: Delete Auto Diff?? YES; Hemoglobin 6.4 g/dL (12.0-16.0); Platelet Count 16 10x3/uL (130-400)
[2023-04-02 17:45] LABS: Anisocytosis SLIGHT = 6-15 cells HPF (0-5); Band 15 % (5-11); CellaVision Operator ID LAB.KB; Eosinophils 13 % (0-10); Large Platelets 0.9 % (0-5); Lymphocytes 24 % (21-51); Metamyelocyte 2 % (0-0); Monocytes 13 % (0-10); Myelocyte 21 % (0-0); Neutrophil 4 % (42-75); Nucleated RBC (Manual Ct) 15 % (0); Platelet Adequacy Comment Significant decrease; Polychromasia SLIGHT = 2-3 cells HPF (0-2); Promyelocytes 3 % (0-0); Reactive Lymphocytes 3 % (0-10); Smudge Cells 33.9 %; Total Cell Count 112
[2023-04-02 18:11] LABS: Hematocrit 20.6 % (36.0-47.0)
[2023-04-02] MEDS: traMADol HCl 50 MG TAB PO PRN (18:53)
[2023-04-02] MEDS: Lorazepam 1 MG TAB PO PRN (21:01)
[2023-04-03] MEDS: Morphine 4 MG/ML VIAL SLOW IVP SCH ×6 (00:34→21:07)
[2023-04-03] MEDS: Senokot S 8.6-50 MG TAB PO PRN ×2 (05:09→21:09)
[2023-04-03 05:30] LABS: Manual Diff?? YES; Mean Corpuscular HGB CONC 33.5 g/dL (32.0-36.0); Mean Corpuscular Hemoglobin 29.2 pg (27.0-31.0); Mean Corpuscular Volume 87.2 fl (78.0-98.0); Mean Platelet Volume 10.7 fL (7.4-10.4); RBC Distribution Width 15.9 % (11.5-14.5); Red Blood Cell (RBC) Count 3.83 mill/uL (4.20-5.40); White Blood Cell (WBC) Count 8.6 10x3/uL (4.8-10.8)
[2023-04-03 05:44] LABS: Hematocrit 33.4 % (36.0-47.0); Hemoglobin 11.2 g/dL (12.0-16.0); Platelet Count 14 10x3/uL (130-400)
[2023-04-03 05:45] LABS: Delete Auto Diff?? YES
[2023-04-03 05:47] LABS: ALT (SGPT) 21 U/L (8-55); AST (SGOT) 69 U/L (5-34); Albumin 3.1 g/dL (3.5-5.0); Alkaline Phosphatase 395 U/L (40-110); Anion Gap 16 mmol/L (10-20); BUN (Urea Nitrogen) 13 mg/dL (7.0-18.7); Bilirubin, Total 0.8 mg/dL (0.2-1.2); Calc. Creatinine Clearance 85 mL/min (70-130); Calcium 8.9 mg/dL (7.8-10.44); Carbon Dioxide 20 mmol/L (22-29); Chloride 100 mmol/L (98-107); Estimated GFR 115; Globulin 3.4 g/dL (2.4-3.5); Glucose 96 mg/dL (70-105); Potassium 3.7 mmol/L (3.5-5.1); Protein, Total 6.5 g/dL (6.0-8.3); Sodium 132 mmol/L (136-145)
[2023-04-03 06:30] LABS: Band 11 % (5-11); CellaVision Operator ID lab.abc; Eosinophils 18 % (0-10); Lymphocytes 9 % (21-51); Metamyelocyte 5 % (0-0); Monocytes 26 % (0-10); Myelocyte 14 % (0-0); Neutrophil 8 % (42-75); Nucleated RBC (Manual Ct) 16 % (0); Plasma Cells 1 % (0-0); Platelet Adequacy Comment Platelets Decreased; Polychromasia SLIGHT = 2-3 cells HPF (0-2); Promyelocytes 2 % (0-0); Reactive Lymphocytes 1 % (0-10); Smudge Cells 15.5 %; Total Cell Count 110
[2023-04-03] MEDS: Ipratropium/Albuterol 3 ML NEB NEB SCH ×4 (07:40→19:43)
[2023-04-03 09:19] LABS: Hematocrit 34.5 % (36.0-47.0); Hemoglobin 11.8 g/dL (12.0-16.0)
[2023-04-03] MEDS ORDERED: diphenhydrAMINE 50 MG/ML VIAL IVP SCH (12:00)
[2023-04-03] MEDS ORDERED: methylPREDNISolone Sod Succ/PF 125 MG/2 ML VIAL IVP SCH (12:00)
[2023-04-03] MEDS: Saccharomyces boulardii 250 MG CAP PO SCH (17:21)
[2023-04-03] MEDS: Lorazepam 1 MG TAB PO PRN (21:10)
[2023-04-04] MEDS: Morphine 4 MG/ML VIAL SLOW IVP SCH ×6 (01:45→20:45)
[2023-04-04 06:11] LABS: Hematocrit 32.3 % (36.0-47.0); Hemoglobin 11.1 g/dL (12.0-16.0); Manual Diff?? YES; Mean Corpuscular HGB CONC 34.4 g/dL (32.0-36.0); Mean Corpuscular Hemoglobin 29.7 pg (27.0-31.0); Mean Corpuscular Volume 86.4 fl (78.0-98.0); Red Blood Cell (RBC) Count 3.74 mill/uL (4.20-5.40); White Blood Cell (WBC) Count 12.5 10x3/uL (4.8-10.8)
[2023-04-04 06:32] LABS: Platelet Count 10 10x3/uL (130-400)
[2023-04-04 06:33] LABS: Albumin 3.1 g/dL (3.5-5.0); Anion Gap 14 mmol/L (10-20); BUN (Urea Nitrogen) 16 mg/dL (7.0-18.7); Bilirubin, Total 0.7 mg/dL (0.2-1.2); Calc. Creatinine Clearance 86 mL/min (70-130); Calcium 8.9 mg/dL (7.8-10.44); Carbon Dioxide 23 mmol/L (22-29); Chloride 102 mmol/L (98-107); Delete Auto Diff?? YES; Estimated GFR 115; Glucose 142 mg/dL (70-105); Potassium 3.9 mmol/L (3.5-5.1); Protein, Total 6.4 g/dL (6.0-8.3); Sodium 135 mmol/L (136-145)
[2023-04-04 06:34] LABS: ALT (SGPT) 25 U/L (8-55); AST (SGOT) 67 U/L (5-34); Alkaline Phosphatase 335 U/L (40-110); Globulin 3.3 g/dL (2.4-3.5)
[2023-04-04] MEDS: Ipratropium/Albuterol 3 ML NEB NEB SCH ×4 (07:55→18:39)
[2023-04-04 08:47] LABS: Band 26 % (5-11); CellaVision Operator ID LAB.GE; Eosinophils 8 % (0-10); Lymphocytes 14 % (21-51); Metamyelocyte 9 % (0-0); Monocytes 18 % (0-10); Myelocyte 7 % (0-0); Neutrophil 15 % (42-75); Nucleated RBC (Manual Ct) 6 % (0); Platelet Adequacy Comment Significant decrease; Polychromasia MODERATE = 3-4 cells HPF (0-2); Reactive Lymphocytes 1 % (0-10); Total Cell Count 110
[2023-04-04] MEDS ORDERED: Midazolam HCl 2 mg/2 ml Vial ONE (12:07)
[2023-04-04] MEDS ORDERED: fentaNYL PF 100 MCG/2 ML SYRINGE ONE ×2 (12:08→14:43)
[2023-04-04] MEDS ORDERED: Propofol 500 MG/50 ML VIAL ONE (12:08)
[2023-04-04] MEDS ORDERED: Ketamine 50 MG/ML (10ML VIAL) ONE (12:19)
[2023-04-04] MEDS ORDERED: diphenhydrAMINE 50 MG/ML VIAL ONE ×2 (12:32→14:46)
[2023-04-04] MEDS ORDERED: CEFAZOLIN 2 GM in Sodium Chloride 0.9% 100 ML IVPB SCH (13:00)
[2023-04-04] MEDS ORDERED: Ondansetron HCl/PF 4 MG/2 ML Vial IVP PRN (14:35)
[2023-04-04] MEDS ORDERED: Promethazine HCl 25 MG/ML VIAL IM PRN (14:35)
[2023-04-04] MEDS ORDERED: Dexamethasone 4 mg/ml Vial ONE (14:46)
[2023-04-04] MEDS ORDERED: fentaNYL 50 mcg/mL 1 mL Vial ONE (15:09)
[2023-04-04] MEDS ORDERED: hydrOXYzine 25 MG TAB PO SCH (17:45)
[2023-04-04] MEDS ORDERED: Dexamethasone 4 mg/ml Vial IM SCH (17:45)
[2023-04-04 18:03] LABS: Platelet Count 10 10x3/uL (130-400)
[2023-04-04] MEDS: Morphine 2 MG/ML VIAL SLOW IVP PRN ×2 (18:17→22:07)
[2023-04-04] MEDS: Saccharomyces boulardii 250 MG CAP PO SCH (18:18)
[2023-04-04] MEDS: Senokot S 8.6-50 MG TAB PO PRN (18:18)
[2023-04-04] MEDS: traMADol HCl 50 MG TAB PO PRN (20:46)
[2023-04-04] MEDS: Acetaminophen 325 MG TAB PO PRN (22:08)
[2023-04-04] MEDS: Lorazepam 1 MG TAB PO PRN (22:14)
[2023-04-05] MEDS: Morphine 4 MG/ML VIAL SLOW IVP SCH ×5 (00:19→17:48)
[2023-04-05] MEDS: Morphine 2 MG/ML VIAL SLOW IVP PRN ×2 (01:45→07:30)
[2023-04-05 04:24] LABS: #Basophils 0.5 thou/uL (0.0-0.2); #Eosinphils 0.6 thou/uL (0.0-0.7); #Monocytes 3.7 thou/uL (0.11-0.59); #Neutrophils 5.9 thou/uL (1.40-6.50); %Basophils 2.9 % (0.0-1.0); %Eosinophils 3.7 % (0.0-10.0); %Lymphocytes 14.3 % (21.0-51.0); %Monocytes 24.2 % (0.0-10.0); %Neutrophils 38.7 % (42.0-75.0); Hematocrit 30.7 % (36.0-47.0); Hemoglobin 10.2 g/dL (12.0-16.0); Manual Diff?? YES; Mean Corpuscular HGB CONC 33.2 g/dL (32.0-36.0); Mean Corpuscular Hemoglobin 29.2 pg (27.0-31.0); RBC Distribution Width 16.5 % (11.5-14.5); Red Blood Cell (RBC) Count 3.49 mill/uL (4.20-5.40); White Blood Cell (WBC) Count 15.3 10x3/uL (4.8-10.8)
[2023-04-05 04:33] LABS: Platelet Count 8 10x3/uL (130-400)
[2023-04-05 04:46] LABS: ALT (SGPT) 24 U/L (8-55); AST (SGOT) 68 U/L (5-34); Albumin 2.9 g/dL (3.5-5.0); Alkaline Phosphatase 300 U/L (40-110); Anion Gap 14 mmol/L (10-20); BUN (Urea Nitrogen) 21 mg/dL (7.0-18.7); Bilirubin, Total 0.7 mg/dL (0.2-1.2); Calc. Creatinine Clearance 79 mL/min (70-130); Calcium 8.5 mg/dL (7.8-10.44); Carbon Dioxide 22 mmol/L (22-29); Chloride 103 mmol/L (98-107); Estimated GFR 113; Globulin 3.1 g/dL (2.4-3.5); Glucose 121 mg/dL (70-105); Potassium 4.2 mmol/L (3.5-5.1); Sodium 135 mmol/L (136-145)
[2023-04-05 07:19] LABS: Band 31 % (5-11); CellaVision Operator ID LAB.GE; Eosinophils 5 % (0-10); Lymphocytes 6 % (21-51); Metamyelocyte 13 % (0-0); Monocytes 14 % (0-10); Myelocyte 8 % (0-0); Neutrophil 22 % (42-75); Nucleated RBC (Manual Ct) 7 % (0); Platelet Adequacy Comment Significant decrease; Polychromasia MODERATE = 3-4 cells HPF (0-2); Total Cell Count 119
[2023-04-05] MEDS: traMADol HCl 50 MG TAB PO PRN ×2 (07:31→17:50)
[2023-04-05] MEDS: Acetaminophen 325 MG TAB PO PRN ×2 (07:31→17:50)
[2023-04-05 08:35] VITALS: BP 117/85; TEMP 97.7
[2023-04-05] MEDS: Ipratropium/Albuterol 3 ML NEB NEB SCH ×3 (08:39→18:29)
[2023-04-05] MEDS ORDERED: Polyethylene Glycol 3350 17 GM Packet PO SCH (09:00)
[2023-04-05] MEDS: Senokot S 8.6-50 MG TAB PO PRN (09:17)
[2023-04-05] MEDS: Saccharomyces boulardii 250 MG CAP PO SCH (17:48)
== END 2023-04-05 19:10 | disposition hospice, home (50) | DRG 580 ==
LOC: ERS 11:42 → SURG B 17:36
PROVIDERS: ADMIT Family Medicine; ATTEND Internal Medicine
PROC: 0W993ZZ Drainage of Right Pleural Cavity, Percutaneous Approach (ICD-10-PCS; principal; 2023-04-02)
PROC: 30233N1 Transfusion of Nonautologous Red Blood Cells into Peripheral Vein, Percutaneous Approach (ICD-10-PCS; 2023-04-02)
PROC: 0JH60WZ Insertion of Totally Implantable Vascular Access Device into Chest Subcutaneous Tissue and Fascia, Open Approach (ICD-10-PCS; 2023-04-04)
PROC: 0W9B30Z Drainage of Left Pleural Cavity with Drainage Device, Percutaneous Approach (ICD-10-PCS; 2023-04-04)
PROC: 6A550Z2 Pheresis of Platelets, Single (ICD-10-PCS; 2023-04-04)
PROC: 30233R1 Transfusion of Nonautologous Platelets into Peripheral Vein, Percutaneous Approach (ICD-10-PCS; 2023-04-04)
PROC: 0W9930Z Drainage of Right Pleural Cavity with Drainage Device, Percutaneous Approach (ICD-10-PCS; 2023-04-04)
DX: C50.911 Malignant neoplasm of unspecified site of right female breast (principal); C78.7 Secondary malignant neoplasm of liver and intrahepatic bile duct; C79.51 Secondary malignant neoplasm of bone; J91.0 Malignant pleural effusion; D64.9 Anemia, unspecified; D69.6 Thrombocytopenia, unspecified; K21.9 Gastro-esophageal reflux disease without esophagitis; Z98.890 Other specified postprocedural states; Z79.899 Other long term (current) drug therapy; Z51.5 Encounter for palliative care; E83.52 Hypercalcemia
CPT/HCPCS: 36415; 36430; 71045; 71275; 74177; 80048; 80053; 82150; 82945; 83615; 83986; 84157; 84478; 84703; 85025; 85060; 86850; 86900; 86901; 87116; 87206; 88112; 88305; 88341; 88342; 89051; 93005; 96374; A7048; C1729; J1100; J1200; J1642; J2001; J2250; J2270; J2272; J2405; J2704; J2930; J3010; J7620; P9016; P9035; Q9967